=== PATIENT | female | born 2000 ===

== ENCOUNTER 2018-01-27 09:09 | Emergency (ER) | payer BC ==
--- NOTE | 2018-01-27 09:19 | Emergency Department Record ---
History of Present Illness - General Chief Complaint: Ankle/Foot Injury Stated Complaint: L FOOT PAIN Source: Patient Mode of Arrival: Ambulatory Limitations: No limitations - History of Present Illness Initial Comments: 17 yo female presents with left foot pain for several days. No specific injury. The pain is over the medial foot. 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 No fever, redness, swelling. No numbness or tingling. Complaint: Foot injury -: Days(s) Injury: Foot: Left Type of Injury: Other Place: Work Severity: Moderate Improves With: Immobilization Worsens With: Movement, Palpation, Weight bearing Context: Walking Other Symptoms: Other Associated Symptoms: Able to partially bear weight - Related Data Allergies Allergy/AdvReac Type Severity Reaction Status Date / Time No Known Allergies Allergy PT UNSURE Verified 01/27/18 09:13 OF REACTION Review of Systems Constitutional: Denies: Chills, Fever, Weakness Eyes: Denies: Eye discharge ENT: Denies: Congestion, Throat pain Respiratory: Denies: Cough Cardiovascular: Denies: Chest pain, Syncope Endocrine: Denies: Fatigue Gastrointestinal: Denies: Diarrhea, Nausea, Vomiting Genitourinary: Denies: Dysuria Musculoskeletal: Reports: As per HPI, Arthralgia, Myalgia. Denies: Joint swelling, Neck pain Skin: Denies: Bruising, Change in color, Rash Neurological: Denies: Headache, Numbness, Tingling, Tremors, Weakness Psychiatric: Denies: Anxiety Hematological/Lymphatic: Denies: Easy bleeding, Easy bruising Physical Exam - General General Appearance: Alert, Oriented x3, Cooperative, No acute distress Limitations: No limitations - Head Head exam: Normal inspection - Eye Eye exam: Normal appearance - ENT ENT exam: Normal exam Ear exam: Normal external inspection Nasal Exam: Normal inspection Mouth exam: Normal external inspection - Neck Neck exam: Normal inspection - Cardiovascular Peripheral Pulses: 2+: Dorsalis Pedis (L) - Rectal Rectal exam: Deferred - exam: Deferred - Extremities Extremities exam: Normal inspection, Full ROM, Normal capillary refill, Tenderness. negative: Calf tenderness, Joint swelling, Pedal edema Image of Feet: 1 - medial tenderness, normal inspection, brisk CR, sensation is intact - Back Back exam: Reports: Full ROM - Neurological Neurological exam: Alert, Normal gait, Oriented X3 - Psychiatric Psychiatric exam: Normal affect, Normal mood - Skin Skin exam: Dry, Intact, Normal color, Warm Course - Reevaluation(s) Reevaluation #1: 01/27/18 09:37 She now requests the right ear be examined. She has irritation and slight drainage The external canal has mild swelling and erythema. Cortisporin otic provided in ED 01/27/18 09:38 The XR was negative for acute process Off work today and tomorrow Disposition Disposition: Discharge Clinical Impression: Foot pain, left, Otitis external Disposition: Home, Self-Care Condition: (1) Good Instructions: Plantar Fasciitis (ED), Foot Sprain (ED), Otitis Externa (ED) Additional Instructions: Motrin as directed Rest today and tomorrow with minimal standing or walking Ice the foot 3 times daily and after work See your doctor in one week if the pain continues Use the ear drops every 6 hours. Forms: Patient Portal Access Time of Disposition: 09:39 Quality - Quality Measures Quality Measures: N/A - Blood Pressure Screening Does Patient Have Any of the Following: No Blood Pressure Classification: Normal BP Reading Systolic Measurement: 109 Diastolic Measurement: 71 Screening for High Blood Pressure: < Normal BP, F/U Not Required > [G8783]
[2018-01-27] MEDS ORDERED: NEOMYCIN/POLYMYXIN B SULF/HC 10ML BTL OT ONE (09:37)
[2018-01-27] MEDS ORDERED: IBUPROFEN 600 MG TABLET PO ONE (09:37)
--- NOTE | 2018-01-28 15:07 | RADIOLOGY REPORT ---
EXAM: FOOT, LEFT 3 VIEWS HISTORY: PAIN. TECHNIQUE: Three-view left foot. COMPARISON: None. ENCOUNTER: Initial. FINDINGS: Negative for acute fracture or dislocation. The soft tissues are unremarkable. Joint spaces are preserved. IMPRESSION: NEGATIVE EXAM. JOB NUMBER: [id number] MTDD
== END 2018-01-27 10:21 | disposition home or self-care (01) ==
LOC: ER 09:09
DX: M79.672 Pain in left foot (principal); H60.91 Unspecified otitis externa, right ear
CPT/HCPCS: 99283